=== PATIENT | male | born 1960 | race Caucasian/White ===

== ENCOUNTER 2017-02-15 14:59 | Emergency (ER) | payer BC ==
--- NOTE | 2017-02-15 15:49 | DIAGNOSTIC IMAGING REPORT ---
PROCEDURE: CT HEAD WITHOUT CONTRAST INDICATION: STROKE SYMPTOMS TECHNIQUE: Axial CT images were acquired through the head. Coronal and sagittal reformations were created. COMPARISON: None. FINDINGS: No intracranial hemorrhage or extraaxial fluid collections. Ventricles are normal in size, shape and position. There is no mass, mass effect or midline shift. The anne-white matter differentiation is normal. There is no edema. The calvarium is intact. The paranasal sinuses and mastoid air cells are normally aerated. The extracranial soft tissues and orbits are normal. IMPRESSION: 1. No CT evidence of acute intracranial process. 2. Findings discussed with ED at 3:50pm. All CT scans at this facility use dose modulation, iterative reconstruction, and/or weight-based dosing when appropriate to reduce radiation dose to as low as reasonably achievable.
--- NOTE | 2017-02-15 15:51 | DIAGNOSTIC IMAGING REPORT ---
PROCEDURE: XR CHEST 1 VIEW INDICATION: STROKE SYMPTOMS AND CHEST PAIN TECHNIQUE: Portable AP view 03:15 p.m. COMPARISON: None. FINDINGS: Lungs are clear. Heart and mediastinum are normal. Thorax is normal. IMPRESSION: 1. Negative chest.
--- NOTE | 2017-02-15 17:09 | DIAGNOSTIC IMAGING REPORT ---
PROCEDURE: CTA HEAD AND NECK INDICATION: Right-sided weakness. TECHNIQUE: 112 ml of Isovue 370 injected intravenously and axial images were obtained from the vertex through the upper mediastinum with 3D sagittal and coronal MIP reconstructions. COMPARISON: Head CT 02/15/2017. FINDINGS: AORTIC ARCH: Normal. RIGHT CAROTID SYSTEM: Minor plaque formation. LEFT CAROTID SYSTEM: Atherosclerosis of the origin of the left vertebral artery but no evidence of stenosis. VERTEBROBASILAR SYSTEM: Normal INTRACRANIAL ANTERIOR CIRCULATION: Normal without evidence of atherosclerosis, stenosis, occlusion or aneurysm. INTRACRANIAL POSTERIOR CIRCULATION: Normal without evidence of atherosclerosis, stenosis, occlusion or aneurysm. IMPRESSION: 1. Minor plaque formation of the carotid bifurcations bilaterally without stenosis 2. Atherosclerosis at the origin of the left vertebral artery without stenosis 3. Results discussed with Dr. Avendano All CT scans at this facility use dose modulation, iterative reconstruction, and/or weight-based dosing when appropriate to reduce radiation dose to as low as reasonably achievable.
--- NOTE | 2017-02-15 17:46 | DIAGNOSTIC IMAGING REPORT ---
PROCEDURE: US ART LOWER EXT DOPPLER-RIGHT INDICATION: PAIN IN LIMB TECHNIQUE: Color Doppler duplex imaging of the right lower extremity arterial system was performed. The patient was unable to exercise. COMPARISON: None. FINDINGS: No significant plaque seen. VESSELS/ WAVEFORMS: Triphasic PEAK SYSTOLIC VELOCITIES: Common femoral artery: 76 cm/second. Profunda femoral artery: 52 cm/second. Proximal superficial femoral artery: 60 cm/second. Mid superficial femoral artery: 74 cm/second. Distal superficial femoral artery: 67 cm/second. Popliteal artery: 51 cm/second. Proximal posterior tibial artery: 47 cm/second. Proximal anterior tibial artery: 40 eight cm/second. Distal posterior tibial artery: 36 cm/second. Dorsalis pedis artery: 44 cm/second. Peroneal artery: 41 cm/sec IMPRESSION: 1. Normal arterial tree right lower extremity 2. Results were called to Dr. Avendano at 05:45 p.m.
--- NOTE | 2017-02-15 19:01 | ED ORDER SUMMARY ---
..... Patient: LAISHA PARNELL OrderSheet [facility] VisitID: [id number] [address] [place] [address] 56y, M Registration Date/Time: 02/15/2017 ORDER SHEET Weight: 85.8 kg (measured) Allergies: Demerol GENERAL ORDERS: Chest 1V Urgent (15:02 02/15/2017 Malcom Dinh) (Ack 15:05 Samsona ER Tech1) (15:17 EHassan R.N.) CT Head wo Cont Urgent (15:03 02/15/2017 Malcom Dinh) (Ack 15:05 Lindsay BLANCHARD Tech1) (15:12 JSailyneck R.N.) Stroke Panel Stat (15:04 02/15/2017 Malcom Dinh) (Ack 15:05 Lindsay ER Tech1) (15:12 Joseeck R.N.) Troponin-I Urgent (15:04 02/15/2017 Malcom Dinh) (Ack 15:05 Samsona ER Tech1) (15:12 DANYimbeck R.N.) TSH Urgent (15:04 02/15/2017 Malcom Dinh) (Ack 15:05 Lindsay ER Tech1) (15:12 JSimbeck R.N.) CTA Head w Cont (No) (GFR > 60) Urgent (16:03 02/15/2017 Malcom Dinh) (Ack 16:06 Lindsay BLANCHARD Tech1) (Cancelled: Duplicate Order16:08 Malcom Dinh) CTA Head and Neck (No) (gfr > 60) Urgent (16:07 02/15/2017 Malcom Dinh) (Ack 16:08 Lindsay ER Tech1) (16:39 EHassadennis R.N.) US Art Low Ext Doppler Right Urgent (16:22 02/15/2017 Malcom Dinh) (Ack 16:23 Lindsay ER Tech1) (19:05 EHassadennis R.N.) Troponin-I (redraw now please) Urgent (17:51 02/15/2017 Malcom Dinh) (Ack 17:55 Lindsay ER Tech1) (19:05 EHassan R.N.) MEDICATION ORDERS: IV FLUIDS: IV NS : initial bolus 1000 mL (1000 mL/hr), then none - for X1 (NOW) (15:03 02/15/2017 Malcom Dinh) (15:18 Ching R.N.) Fentanyl IV 50 mcg (HIGH ALERT MEDICATION, NOW) (15:04 02/15/2017 Malcom Dinh) (15:18 Ching R.N.) ORDER SHEET NOTES: [Electronically signed by Kaleigh Serna R.N. (23:44 02/15/2017)] [Electronically signed by Jairo Avendano Dr. (09:42 02/16/2017)] [Electronically locked/signed by Kaleigh Serna R.N. (23:44 02/15/2017)]
--- NOTE | 2017-02-15 19:01 | ED ORDER SUMMARY ---
..... Patient: LAISHA PARNELL OrderSheet [facility] VisitID: [id number] [address] [place] [address] 56y, M Registration Date/Time: 02/15/2017 ORDER SHEET Weight: 85.8 kg (measured) Allergies: Demerol GENERAL ORDERS: Chest 1V Urgent (15:02 02/15/2017 Malcom Dinh) (Ack 15:05 Samsona ER Tech1) (15:17 EHassan R.N.) CT Head wo Cont Urgent (15:03 02/15/2017 Malcom Dinh) (Ack 15:05 Lindsay BLANCHARD Tech1) (15:12 JSailyneck R.N.) Stroke Panel Stat (15:04 02/15/2017 Malcom Dinh) (Ack 15:05 Lindsay ER Tech1) (15:12 Joseeck R.N.) Troponin-I Urgent (15:04 02/15/2017 Malcom iDnh) (Ack 15:05 Samsona ER Tech1) (15:12 DANYimbeck R.N.) TSH Urgent (15:04 02/15/2017 Malcom Dinh) (Ack 15:05 Lindsay ER Tech1) (15:12 JSimbeck R.N.) CTA Head w Cont (No) (GFR > 60) Urgent (16:03 02/15/2017 Malcom Dinh) (Ack 16:06 Lindsay BLANCHARD Tech1) (Cancelled: Duplicate Order16:08 Malcom Dinh) CTA Head and Neck (No) (gfr > 60) Urgent (16:07 02/15/2017 Malcom Dinh) (Ack 16:08 Lindsay ER Tech1) (16:39 EHassadennis R.N.) US Art Low Ext Doppler Right Urgent (16:22 02/15/2017 Malcom Dinh) (Ack 16:23 Lindsay ER Tech1) (19:05 EHassadennis R.N.) Troponin-I (redraw now please) Urgent (17:51 02/15/2017 Malcom Dinh) (Ack 17:55 Lindsay ER Tech1) (19:05 EHassan R.N.) MEDICATION ORDERS: IV FLUIDS: IV NS : initial bolus 1000 mL (1000 mL/hr), then none - for X1 (NOW) (15:03 02/15/2017 Malcom Dinh) (15:18 Ching R.N.) Fentanyl IV 50 mcg (HIGH ALERT MEDICATION, NOW) (15:04 02/15/2017 Malcom Dinh) (15:18 Ching R.N.) ORDER SHEET NOTES: [Electronically signed by Kaleigh Serna R.N. (23:44 02/15/2017)] [Electronically signed by Jairo Avendano Dr. (09:42 02/16/2017)] [Electronically locked/signed by Kaleigh Serna R.N. (23:44 02/15/2017)]
--- NOTE | 2017-02-15 19:01 | ED NURSING NOTES ---
Clinical Report - [facility] [address] [place] [address] 02/15/2017 15:00 Patient: LAISHA PARNELL TRIAGE Triage time 1500 PM. Acuity: LEVEL 2. Chief Complaint: DIZZINESS, NUMBNESS and DIFFICULTY WALKING (Chest pain, SOB). Alert. No acute distress. SOHA COMA SCORE: Soha Coma Scale: 15- eyes open spontaneously (4); best verbal response- oriented x 4 (5); best motor response- obeys commands (6). --15:39 Kaleigh Serna R.N. 15:00 02/15/17. BP: 137/102 (regular adult cuff) taken on the left arm, via an automated monitor, while sitting. HR: 75. RR: 14. O2 saturation: 97% on room air. Temp: 98.3 F (oral). Pain level now: 07/10. --15:39 Kaleigh Serna R.N. late entry - 15:39 PM. --15:45 Kaleigh Serna R.N. Weight: 85.8 kg measured. Height/Length: 70 inches Per Patient. BMI: 27.1. --15:24 Kaleigh Serna R.N. Medications Levothyroxine Sodium Oral. --15:19 Kaleigh Serna R.N. Multivitamin Oral. --15:23 Kaleigh Serna R.N. Fish Oil Oral. --15:23 Kaleigh Serna R.N. Allergies Demerol. --15:19 Kaleigh Serna R.N. Medication/allergy information source: the patient. --15:39 Kaleigh Serna R.N. History Arrived by private vehicle. Historian: patient. Accompanied by family. Primary physician (None). ( Pt states that was driving about 1 hour and 1/2 ago when he suddenly had CP, COB, tingling/pain of his right leg and foot all the way up his thigh. Pt states). This is a recurrent problem. (1 weeks). He has had weakness and difficulty breathing. No fever, cough or skin rash. Denies muscle aches. PAST MEDICAL HX: Immunizations: status is unknown. SOCIAL HX: Occasional alcohol use. No drug use. No infectious disease exposure. ABUSE ASSESSMENT: No report of abuse. SELF HARM ASSESSMENT: A self harm assessment was performed. The patient answered "no" to the question "Do you have thoughts of harming or killing yourself?" and "Have you recently had thoughts about harming or killing others?". FALL RISK ASSESSMENT: Fall risk assessment completed. No fall risk identified. NUTRITIONAL RISK ASSESSMENT: The nutritional risk assessment revealed no deficiencies. FUNCTIONAL ASSESSMENT: Functional assessment: no impairments noted. LEARNING NEEDS ASSESSMENT: The learning needs assessment revealed no barriers. SKIN INTEGRITY ASSESSMENT: Skin integrity risk assessment completed. No skin integrity risk identified. --15:39 Kaleigh Serna R.N. Treatment REGISTERED MIDWIFE: None. --15:39 Kaleigh Serna R.N. Primary physician called the ED prior to patient's arrival (Dr. Bonilla [facility]). ( Pt states also having CP on and off for the past couple of weeks and has not gone to see a doctor about it due to it "resolving". Pt did drive himself to the ED after speaking to his doctor over the phone who recommended him to come to the ED immediately.). --15:45 Kaleigh Serna R.N. PROBLEMS: Anxiety disorder. Back Pain. --15:24 Kaleigh Serna R.N. Hypothyroidism. Thalassemia. --16:08 Kaleigh Serna R.N. ADDITIONAL SURGERIES: Back Surgery. Hernia Repair. --15:24 Kaleigh Serna R.N. Interventions ID band on patient. --15:39 Kaleigh Serna R.N. PHYSICAL ASSESSMENT To room via wheelchair. GENERAL / NEURO / PSYCH: Alert. Oriented X 4. Appears in no acute distress. Appears in pain and anxious. Rigid gait due to pain in the right lower extremity. Able to ambulate with a limp. Does not use a cane or walker or crutches. Pupillary exam: Right pupil 1mm, round and briskly reactive to light directly. Left pupil: 1mm, round and briskly reactive to light directly. HEENT: Pupils equal, round and reactive to light. No facial asymmetry noted. No conjunctival findings. No facial weakness. No pharyngeal erythema or active bleeding from nose. Normal external canals. No sinus tenderness present or nasal discharge. Mucous membranes are pink. RESPIRATORY: Respirations not labored. Chest nontender. Breath sounds within normal limits. CVS: No JVD. No abnormal heart sounds. Capillary refill less than 2 seconds. Pulses within normal limits. GI / : Abdomen soft and nontender and normal bowel sounds. EXTREMITIES: No lower extremity edema. SKIN: Skin intact. Skin is warm and dry. Normal skin turgor. --15:41 Kaleigh Serna R.N. ( FAST exam with right sided (LE ) weakness, as per pt due to "pain and unable to move leg" but able to feel). --15:47 Kaleigh Serna R.N. NURSING PROGRESS NOTES 15:03 02/15/2017 Started bag #1 1000 mL IV Fluids IV NS (Saline); at 1000 mL/hr over 1 hour(s) via site #1 via IV pump. Allergies verified and confirmed 5 rights. IV patency established. IV site checked: no pain, redness, or swelling. IV flushed thoroughly pre- and post-medication administration. --15:18 Kaleigh Serna R.N. 15:17 02/15/2017 Site #1 started via IV in the left antecubital space with an 18g angiocath; one attempt. Blood drawn: rainbow set. Labeled in the presence of the patient and sent to the lab. --15:18 Kaleigh Serna R.N. 15:18 02/15/2017 Fentanyl IVP 50 mcg given over 1 minute(s) via site #1. Allergies verified, confirmed 5 rights and sedative warning given to the patient. IV patency established. IV site checked: no pain, redness, or swelling. IV flushed thoroughly pre- and post-medication administration. IVP given by RN. --15:18 Kaleigh Serna R.N. 15:30 02/15/17. BP: 130/86 (regular adult cuff) taken on the right arm, via an automated monitor, while sitting. HR: 87. RR: 16. O2 saturation: 100% on nasal cannula at 2 liters/minute. Pain level now: 5/10. --15:51 Kaleigh Serna R.N. late entry - 15:05. Cardiac rhythm: normal sinus rhythm. The initial plan of care for this patient has been created This plan of care was discussed with the patient and family. Oxygen administered. conveyor monitor, pulse oximeter and NIBP monitor placed on patient; monitor alarms on. Patient ID band checked for patient name and birthdate: patient confirmed. Blood samples drawn from the left antecubital space peripheral IV site by nurse per protocol ; labeled in presence of the patient and sent to lab: rainbow set. Finger stick glucose: 85; performed by nurse; result shown to the ED physician. Portable chest x-ray performed and shown to the ED physician. Patient gowned. Warming measures: blanket applied. Reassurance given. Two patient identifiers checked. Call light placed in reach. Side rails up. Bed placed in lowest position. --15:51 Kaleigh Serna R.N. 15:45 02/15/17. BP: 133/85 (regular adult cuff) taken on the right arm, via an automated monitor, while lying. HR: 67. RR: 15. O2 saturation: 98% on nasal cannula at 2 liters/minute. Pain level now: 12/08. --15:53 Kaleigh Serna R.N. late entry - 15:45 PM. conveyor monitor, pulse oximeter and NIBP monitor placed on patient; monitor alarms on. Reassurance given. Reassessment after fluids administered. He has had no adverse reaction. Overall patient status is the same- he states feels the same. GENERAL / NEURO / PSYCH: The patient reports anxiety. Denies headache. RESPIRATORY: Denies difficulty breathing. No respiratory distress present. No decreased breath sounds. CVS: Denies chest pain. GI / : Denies nausea. --15:53 Kaleigh Serna R.N. 16:00 02/15/17. BP: 135/89. HR: 72. RR: 22. O2 saturation: 16%. Pain level now: 10/10. --16:12 Kaleigh Serna R.N. Reassurance given. GENERAL / NEURO / PSYCH: Denies headache. RESPIRATORY: Denies difficulty breathing. CVS: The patient reports chest pain that is mild in severity (pressure). GI / : Denies nausea. --16:12 Kaleigh Serna R.N. Patient returned from CT by stretcher. (1639 PM). --16:39 Kaleigh Serna R.N. 17:20 02/15/17. BP: 128/80. HR: 71. RR: 17. O2 saturation: 99%. --17:22 Prudence Paredes R.N. ( ( complete, at bedside explaining poc to pt and family. pt in SR on monitor rate of 80's, no ectopy, family/friends at bedside, waiting plans for transfer out). 17:19 Prudence Paredes R.N.). --17:22 Prudence Paredes R.N. Checked patient name and birthdate: patient confirmed. Blood samples drawn from the right antecubital space by nurse per protocol ; labeled in presence of the patient and sent to lab: green top; cardiac enzymes (2nd set). --18:03 Prudence Paredes R.N. ED physician notified that lab results are back. Notified (rec call from lab, repeat trop less than .05). --18:29 Prudence Paredes R.N. 16:08 02/15/2017 IV Fluids IV NS Discontinued: bag #1 infused. Total amount infused: 1000 mL. IV patency established. IV site checked: no pain, redness, or swelling. IV flushed thoroughly. --19:08 Kaleigh Serna R.N. 16:39 02/15/2017 Fentanyl IVP Response: no adverse reaction pain is improving. Symptoms have improved the patient feels better. --16:39 Kaleigh Serna R.N. late entry - 18:00 PM. Cardiac rhythm: normal sinus rhythm. Monitoring of patient in place. Reassurance given. The patient is calm and resting quietly. Overall patient status is improved- he states feels better. GENERAL / NEURO / PSYCH: Denies headache. RESPIRATORY: Denies difficulty breathing. CVS: Denies chest pain. GI / : Denies nausea. Call light placed in reach. --20:36 Kaleigh Serna R.N. 18:00 02/15/17. BP: 135/69. HR: 84. RR: 14. O2 saturation: 98% on room air. Temp: 97.3 F (oral). Pain level now: 0/10. --20:36 Kaleigh Serna R.N. late entry - 19:00 PM. Cardiac rhythm: normal sinus rhythm. Reassurance given. The patient is calm. Overall patient status is improved- he states feels better. Call light placed in reach. --20:37 Kaleigh Serna R.N. 19:00 02/15/17. BP: 136/68. HR: 84. RR: 14. O2 saturation: 99% on room air. Temp: 98.3 F (oral). Pain level now: 0/10. --20:37 Kaleigh Serna R.N. Cardiac rhythm: normal sinus rhythm. conveyor monitor, pulse oximeter and NIBP monitor placed on patient; monitor alarms on. Reassurance given. Overall patient status is improved- he states feels better. ( Pt spoken to several times about being admitted and educated on the benefits of being observed due to events, pt has remained asymptomatic since returning from CT scan without any numbness, weakness or chest pain. Pt opting to going home instead, trying to set up out pt testing. Will monitor). --20:50 Kaleigh Serna R.N. 20:00 02/15/17. BP: 134/82 taken on the left arm, via an automated monitor, while lying. HR: 86. RR: 14. O2 saturation: 96% on room air. Pain level now: 0/10. --20:50 Kaleigh Serna R.N. DISPOSITION / DISCHARGE <<STRICKEN ENTRY-- Condition at departure: improved and stable. --21:54 Kaleigh Serna R.N. --END STRIKE>> Correction --21:55 Kaleigh Serna R.N. 21:00 02/15/2017 Site #1 removed upon discharge. Catheter intact. Manual pressure, pressure dressing, bandaid and bandage applied. --21:55 Kaleigh Serna R.N. Cardiac rhythm: normal sinus rhythm. Departure time: 2115 PM. Condition at departure: improved and stable. The goals identified in the patient's plan of care were met. No learning barriers present. Discharge instructions provided and reviewed with the patient and spouse. Reviewed warnings (s/s of stroke). Reviewed medication(s) side effects, precautions, dosing and course information. Prescription(s) given to the patient. Reviewed referral to a conveyor line bakery worker for followup. Summary of care provided to via digital media. Activity restrictions (rest) reviewed. Patient verbalized understanding. Written instructions provided in Icelandic. No treatment instructions. The patient was discharged by the physician. He was discharged home and accompanied by spouse. He left the Emergency Department ambulatory and via private vehicle. Spouse driving. FALL RISK ASSESSMENT: Fall risk assessment completed. No fall risk identified. SOHA COMA SCORE: Soha Coma Scale: 15- eyes open spontaneously (4); best verbal response- oriented x 4 (5); best motor response- obeys commands (6). --21:57 Kaleigh Serna R.N. 21:15 02/15/17. BP: 134/69. HR: 87. RR: 15. O2 saturation: 99% on room air. Temp: 98.5 F (oral). Pain level now: 0/10. --21:57 Kaleigh Serna R.N. Locked/Released at 02/15/2017 23:44 by Kaleigh Serna R.N.
--- NOTE | 2017-02-15 19:01 | ED CLINICAL REPORT ---
Clinical Report - Physicians/Mid Levels [facility] [address] [place] [address] 02/15/2017 15:00 Patient: LAISHA PARNELL Time Seen: 1501. Arrived- By private vehicle. Historian- patient. HISTORY OF PRESENT ILLNESS Chief Complaint: WEAKNESS. 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 It was abrupt in onset and has been constant but is not gone now. The patient has had new onset of weakness, (right sided). At its maximum deficit described as severe. When seen in the E.D., described as severe. No altered mental status, seizure or blackouts. Usually is alert and oriented X3 and has normal mobility. (states he was unable to walk. states he is having extreme pain to the right lower extremity. also reports left sided chest pain. possible facial droop on my exam on the right however patient states he is unsure. patient with hx of chest pain off and on for the past week. no cardiac history. no hx of stress tests or other studies. reports being in good health. no hemoptysis, leg swelling, or shortness of breath. reports pain as moderate, constant, non-radiating, and unchanged.). Similar symptoms previously: None. Recent medical care: Not recently seen/assessed. REVIEW OF SYSTEMS The patient has had chest pain. No skin rash. All systems otherwise negative, except as recorded above. PAST HISTORY See nurses notes. Medications: Fish Oil Oral. Multivitamin Oral. Levothyroxine Sodium Oral. Allergies: Demerol. SOCIAL HISTORY Never smoker. No alcohol use or drug use. No recent travel. Is a local resident. FAMILY HISTORY Negative. ADDITIONAL NOTES The nursing notes have been reviewed. PHYSICAL EXAM Vital Signs: 02/15/2017 15:00 BP: 137/102. HR: 75. RR: 14. O2 saturation: 97%. Temp: 98.3 F. Pain level now: 10/10. Oxygen saturation normal. Appearance: Alert. Anxious. Appears to be in pain. Patient in moderate distress. Odor of alcohol is not present. Speech is not slurred. (non-toxic). Head: Head atraumatic. Eyes: Pupils equal, round and reactive to light. ENT: Normal ENT inspection. Airway intact. Pharynx normal. Neck: Normal inspection. Neck supple. No meningeal signs or carotid bruit. CVS: Normal heart rate and rhythm. Heart sounds normal. Pulses normal. Respiratory: No respiratory distress. Breath sounds normal. Abdomen: Soft and nontender. No organomegaly. Skin: Skin warm and dry. Normal skin color. No rash. Normal skin turgor. Extremities: Extremities exhibit normal ROM. No lower extremity edema. (compartments are soft.). Neuro: Alert. Oriented X 3. Mood/affect normal. Speech normal. Cranial nerves normal (as tested). (right lower extremity weakness 3/5 and 4+/5 in the upper. Left unaffected. No drift. Normal finger to nose. Unable to assess right lower extremity ataxia. Right leg is hypersensitive to light touch. reports "burning" with touch. vascular intact. warm to touch. cap refill < 3 sec in all toes. pulses palpable and 2+ compared to the left side.). LABS, X-RAYS, AND EKG EKG: No acute ischemia. Normal sinus rhythm. Normal P waves. Normal CANDIE. Normal QRS complex. Normal axis. Normal ST and T waves, QT and QTc. The study has been interpreted contemporaneously. The study has been independently viewed by me. The EKG appears to be a good tracing. Chest X-ray: Normal Chest X-Ray. CTA Head: No acute changes. No significant lesions. No infarction, hemorrhage, intracranial mass, midline shift or fracture. The study was independently viewed by me and interpreted by the radiologist. The study was discussed with the radiologist (via pacs and phone). CT Head: Normal study. No acute changes. No bony abnormalities, no hemorrhage, no intracranial mass and no midline shift. The study was independently viewed by me, interpreted by the radiologist and discussed with the radiologist. Lower Extremity Sonography: Negative exam. right sided lower extremity negative. The exam was performed by a exercise equipment repair technician. The study was independently viewed by me and interpreted by the radiologist. The study was discussed with the radiologist (via pacs). Laboratory Tests: CBC w Diff: (CHETNA: 02/15/2017 15:03) ( MsgRcvd 02/15/2017 17:22) Final results Test Result Flag Units (Reference) WHITE BLOOD COUNT 8.4 K/uL (4.5-11.5) RED BLOOD COUNT 7.08 *H M/uL (4.50-5.90) HEMOGLOBIN 14.0 gm/dL (13.5-17.5) HEMATOCRIT 43.7 % (41.0-53.0) MEAN CELL VOLUME 62 L fL (80-100) MEAN CORPUSCULAR HGB 20 L pg (26-34) MEAN CORPUSCULAR HGB CONC 32 g/dL (31-37) RED CELL DISTRIBUTION WIDTH 15.7 H % (11.6-14.8) PLATELET COUNT 214 K/uL (150-400) NEUTROPHIL % 52.1 % (50-75) LYMPH % 33.1 % (25-40) MONO % 10.8 % (3-14) EOSINOPHIL % 3.6 % (0-4) BASOPHIL % 0.4 % (0-2) RBC MORPHOLOGY MICROCYTOSIS 3+~~HYPOCHROMIA 1+~~ANISOCYTOSIS 3+ PT with INR: (CHETNA: 02/15/2017 15:03) ( MsgRcvd 02/15/2017 15:37) Final results Test Result Flag Units (Reference) INR 1.0 (0.8-1.2) Low Intensity Therapy: INR 1.5-2.0 PT range 18.5-23.1Mod.Intensity Therapy: INR 2.0-3.0 PT range 23.1-31.5High Intensity Therapy: INR 2.5-3.5 PT range 27.4-35.5High Intensity Therapy 2: INR 3.0-4.0 PT range 31.5-39.3 APTT 30 SECONDS (24-34) FIBRINOGEN 313 mg/dL (193-455) D-DIMER QUANTITATIVE < 0.27 L ug/mLFEU (0.27-0.52) The primary value of this quantitative assay relates toits negative predictive value (i.e. exclusion) of pulmonaryembolism/deep vein thrombosis/DIC.Elevated levels of d-dimer may also occur with:, age, cancer, inflammation, liver disease,post-op, infection, hematoma, coronary disease, peripheralarteriopathy, bleeding disorders and thrombolytic treatment.Results should be correlated with other clinical andradiological data.Testing Methodology: Latex Immunoassay Troponin-I: (CHETNA: 02/15/2017 18:01) ( [facility] 02/15/2017 18:29) Final results Test Result Flag Units (Reference) TROPONIN I <0.05 L ng/mL (0.00-1.5) TROPONIN REFERENCE RANGE:<0.1 NEGATIVE0.1-1.5 INDETERMINANT>1.5 POSITIVE Troponin-I: (CHETNA: 02/15/2017 15:03) ( [facility] 02/15/2017 17:22) Final results Test Result Flag Units (Reference) TROPONIN I <0.05 L ng/mL (0.00-1.5) TROPONIN REFERENCE RANGE:<0.1 NEGATIVE0.1-1.5 INDETERMINANT>1.5 POSITIVE THYROID STIMULATING HORMONE 2.733 uIU/mL (0.30-3.74) CMP: (CHETNA: 02/15/2017 15:03) ( [facility] 02/15/2017 15:45) Final results Test Result Flag Units (Reference) GLUCOSE 99 mg/dL (70-110) BUN 21 H mg/dL (7-18) CREATININE 0.9 mg/dL (0.6-1.3) Estimated GFR >60 mL/min Estimated GFR- >60 mL/min Note: Persistent reduction over 3 months in eGFR<60 mL/min/1.73 m2 defines CKD. Patients with eGFR values>=60 mL/min/1.73 m2 may also have CKD if evidence ofpersistent proteinuria. Additional information may be foundat www.kidney.org. SODIUM 142 mmol/L (136-145) POTASSIUM 3.9 mmol/L (3.5-5.1) CHLORIDE 104 mmol/L (98-107) CARBON DIOXIDE 27 mmol/L (21-32) CALCIUM 8.9 mg/dL (8.5-10.1) TOTAL PROTEIN 8.2 g/dL (6.4-8.2) ALBUMIN 4.2 g/dL (3.3-5.0) BILIRUBIN, TOTAL 0.6 mg/dL (0.0-1.0) ALKALINE PHOSPHATASE 70 U/L (46-116) AST (SGOT) 25 U/L (15-37) ALT (SGPT) 47 U/L (12-78) . PROGRESS AND PROCEDURES Course of Care: The patient is a pleasant 56 yo male in his usual state of health prior to today's incident. Differential includes CVA, aortic disection, and GA. Patient with unusual constellation of symptoms. Code stroke called. CT head was not read. Concerned for small area on the left. Called radiology oncall. No return of call. Called the next radiologist who was able to give us a read. Patient with negative findings. Consult placed to stroke neuro. Patient with NIH stroke scale of 4 on my initial evaluation. Spoke with the stroke fellow who recommended to get TPA ready. Was able to get speak to the patient and by the time I had evaluated the patient again, symptoms had resolved. stroke scale of 0. Neuro intact. Patient with dull chest pain. Trop x 2 needed. Patient with negative d-dimer. Low concern for aortic disection especially with resolution of symptoms. CTA of the head and neck also ordered for possible AVM or vascular lesion in the brain. US also added on for evaluation of arterial insufficiency. Patient and family updated. Due to the resolution of symptoms. TPA not indicated. Patient and family educated on TPA. Stroke neuro did recommend stroke/TIA work up. Trop neg x 2. Had discussion with patient about work up in the ED and plan of care as well as diagnosis. recommended patient be admitted and monitored and have work up done for ACS and stroke. After long discussion with patient, patient and family agreed to stay after expressing hesitation with finances and time. Explained to patient that finances come later and will worry about health and safety first. Consult placed to cardiology. Spoke to hospitalist who will see the patient. Patient was to be admitted however patient changed his mind at the last minute. Patient is aware of the risks of doing so. He states he lives nearby and will return for any worsening. Did educate patient on TIA and stroke as well as ACS. Patient expressed full understanding of the risks. Patient understands my concerns. Was able to order the patient and outpatient MRI of the head and stem as well as speak to cardiology at [facility]. Patient is to have a schedule appointment per cardiology and evaluation. Do not feel I can force the patient to stay. patient and family understands my concern for safety. They expressed their gratitude however declined the admit. Patient is able to make his own medical decisions. He is with normal mentation. Was able to compromise with outpatient workup. Discussed with patient his work up, diagnosis, home care, return precautions, and follow up. All questions answered. Patient expressed understanding of these instructions and was agreeable to them. Patient understands he is welcome to return at anytime. Do not feel an AMA form would change outcome and would only hurt the doctor patient relationship. Critical care performed (70 minutes). Time is exclusive of separately billable procedures. Time includes: direct patient care, patient reassessment, coordination of patient care, interpretation of data (laboratory data), review of patient's medical records, medical consultation, family consultation regarding treatment decisions and documentation of patient care. Consult obtained. stroke neuro and cardiology. Disposition: Discharged. Condition: good. CLINICAL IMPRESSION 02/15/2017 17:20 BP: 128/80. HR: 71. RR: 17. O2 saturation: 99%. 02/15/2017 16:00 BP: 135/89. HR: 72. RR: 22. O2 saturation: 16%. Pain level now: 10/10. Chest pain characterized as "discomfort" .12 lead EKG performed. (anterior). Blood pressure normal. Oxygen saturation normal. 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 INSTRUCTIONS Warnings: Further evaluation is necessary in order to conduct further tests (You need a stress test and a MRI of your head.). GENERAL WARNINGS: Return or contact your physician immediately if your condition worsens or changes unexpectedly, if not improving as expected, or if other problems arise. Specifically return if pain, vomiting, bleeding, breathing difficulty or fever. Your Current Medications: CONTINUE TAKING THE FOLLOWING MEDICATIONS: Fish Oil Oral. Levothyroxine Sodium Oral. Multivitamin Oral. OTC Medications: Aspirin 325 mg (available over the counter): take 1 orally. Dispense thirty (30). No refills. Follow-up: Return to the emergency department as needed. Follow up with your doctor in three days. Reason for referral: recheck today's concerns. Summary of care provided to patient via paper. Follow up with doctor. Screening today revealed the patient's blood pressure to be in the normal range. The patient should follow up with a primary care provider for blood pressure management. Understanding of the discharge instructions verbalized by patient. Follow-up with: Desire Rodriguez MD, Cardiology, , [facility] - Cardiology, [address] [place] [address], [facility], [facility] Follow up even if well. Call for the next available appointment. Reason for referral: recheck today's concerns. call the office tomorrow at 4pm if they have not called you for an appointment. Summary of care provided to patient and family via paper. (Electronically signed by Jairo Avendano Dr. 02/16/2017 9:42)
--- NOTE | 2017-02-16 09:43 | ED MAR SUMMARY ---
..... Medication Administration Record [facility] [address] [place] [address] Patient: LAISHA PARNELL Visit ID: [id number] 56y, M Weight: 85.8 kg Height/Length: 70 in BMI: 27.1 ALLERGIES: Demerol Start 15:03 02/15/2017 Kaleigh Serna R.N., Stop 16:08 02/15/2017 Kaleigh Serna R.N. Medication Administered: IV NS (SALINE), Dose: IV Fluids over 1 hour(s), Rate: 1000 mL/hr, Dispensed: 1000 mL bag, Site: #1. Medication Ordered: IV NS : initial bolus 1000 mL (1000 mL/hr), then none - for X1 (NOW). Given 15:18 02/15/2017 Kaleigh Serna R.N. Medication Administered: FENTANYL [IVP], Dose: 50 mcg IVP over 1 minute(s), Site: #1 left AC. Medication Ordered: Fentanyl IV 50 mcg (HIGH ALERT MEDICATION, NOW).
--- NOTE | 2017-02-16 09:43 | ED MAR SUMMARY ---
..... Medication Administration Record [facility] [address] [place] [address] Patient: LAISHA PARNELL Visit ID: [id number] 56y, M Weight: 85.8 kg Height/Length: 70 in BMI: 27.1 ALLERGIES: Demerol Start 15:03 02/15/2017 Kaleigh Serna R.N., Stop 16:08 02/15/2017 Kaleigh Serna R.N. Medication Administered: IV NS (SALINE), Dose: IV Fluids over 1 hour(s), Rate: 1000 mL/hr, Dispensed: 1000 mL bag, Site: #1. Medication Ordered: IV NS : initial bolus 1000 mL (1000 mL/hr), then none - for X1 (NOW). Given 15:18 02/15/2017 Kaleigh Serna R.N. Medication Administered: FENTANYL [IVP], Dose: 50 mcg IVP over 1 minute(s), Site: #1 left AC. Medication Ordered: Fentanyl IV 50 mcg (HIGH ALERT MEDICATION, NOW).
--- NOTE | 2017-02-16 09:43 | ED DISCHARGE INSTRUCTIONS ---
Patient: LAISHA PARNELL General Instructions [facility] VisitID: [id number] [address] [place] [address] 56y, M Registration Date/Time: 02/15/2017 02/15/2017 17:20 BP: 128/80. HR: 71. RR: 17. O2 saturation: 99%. 02/15/2017 16:00 BP: 135/89. HR: 72. RR: 22. O2 saturation: 16%. Pain level now: 10/10. Chest pain characterized as "discomfort" .12 lead EKG performed. (anterior). Blood pressure normal. Oxygen saturation normal. 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 INSTRUCTIONS Warnings: Further evaluation is necessary in order to conduct further tests (You need a stress test and a MRI of your head.). GENERAL WARNINGS: Return or contact your physician immediately if your condition worsens or changes unexpectedly, if not improving as expected, or if other problems arise. Specifically return if pain, vomiting, bleeding, breathing difficulty or fever. Your Current Medications: CONTINUE TAKING THE FOLLOWING MEDICATIONS: Fish Oil Oral. Levothyroxine Sodium Oral. Multivitamin Oral. OTC Medications: Aspirin 325 mg (available over the counter): take 1 orally. Dispense thirty (30). No refills. Follow-up: Return to the emergency department as needed. Follow up with your doctor in three days. Reason for referral: recheck today's concerns. Summary of care provided to patient via paper. Follow up with doctor. Screening today revealed the patient's blood pressure to be in the normal range. The patient should follow up with a primary care provider for blood pressure management. Understanding of the discharge instructions verbalized by patient. Follow-up with: Desire Rodriguez MD, Cardiology, , [facility] - Cardiology, [facility] [address], [place] [address] Follow up even if well. Call for the next available appointment. Reason for referral: recheck today's concerns. call the office tomorrow at 4pm if they have not called you for an appointment. Summary of care provided to patient and family via paper. ADDITIONAL INFORMATION TIA: Transient Ischemic Attack The spell you had today is called a TIA (mini-stroke). It is caused by a temporary decrease or blockage of blood flow to a part of your brain. A TIA often happens when a blood clot travels to a blood vessel in the brain. The clot reduces or blocks blood flow, resulting in the symptoms you had. After a short while, the clot dissolves, blood flows again, and the symptoms disappear. Persons with atherosclerosis (hardening of the arteries) or atrial fibrillation (a type of irregular heartbeat) are at higher risk of TIA. TIA causes temporary symptoms similar to a stroke, but lasts less than 24 hours. A full stroke causes symptoms that last more than 24 hours and may be permanent. Once you have had a TIA, you are at risk of having a full stroke. Therefore, be sure to follow up with your doctor for further evaluation. This may include an ultrasound of the arteries in your neck and an evaluation of your heart. If problems are found, your doctor will recommend treatment with medications and/or procedures. Medications to reduce your chance of having another TIA (and stroke) include those that prevent blood clots, such as antiplatelet medicines and anticoagulant medicines. Home care The following guidelines will help you take care of yourself at home: If all of your symptoms have resolved, there is nothing special that you need to do today. Rest at home and avoid exertion for the rest of the day. If your doctor has prescribed antiplatelet medication, take it as directed. Other ways to reduce your risk of a stroke Hypertension, diabetes, elevated cholesterol, and smoking are risk factors for stroke and heart disease. These can be controlled through medications, diet and lifestyle changes. Taking daily aspirin (or similar medications) is a simple but important part of preventing stroke. Follow-up care Call your doctor for an appointment in the next few days for another evaluation. Additional tests may be needed. If you had an X-ray, CT scan, MRI scan, or ECG (electrocardiogram), it will be reviewed by a specialist. Youll be notified of any new findings that will affect your care. When to call 911 or emergency services Get immediate medical attention if any of the following occur: Any of your TIA symptoms return New problems with speech, vision, walking, or weakness or numbeness of the face or on one side of the body Severe headache, fainting spell, dizziness, or seizure Chest Pain, Uncertain Cause Chest pain can happen for a number of reasons. Sometimes the cause can not be determined. If yourcondition does not seem serious, and your pain does not appear to be coming from your heart, your doctor may recommend watching it closely. Sometimes the signs of a serious problem take more time to appear. Therefore, watch for the warning signs listed below. Home care After your visit, follow these recommendations: Rest today and avoid strenuous activity. Take any prescribed medicine as directed. Follow-up care Follow up with your doctor or this facility as instructed or if you do not start to feel better within 24 hours. Call 911 Get immediate medical attention if any of the following occur: A change in the type of pain: if it feels different, becomes more severe, lasts longer, or begins to spread into your shoulder, arm, neck, jaw or back Shortness of breath or increased pain with breathing Weakness, dizziness, or fainting Rapid heart beat Get prompt medical attention Call your doctor right away if any of the following occur: Cough with dark colored sputum (phlegm) or blood Fever of 100.4F(38C) or higher, or as directed by your health care provider Swelling, pain or redness in one leg Aspirin Oral tablet What is this medicine? ASPIRIN ( pir in) is a pain reliever. It is used to treat mild pain and fever. This medicine is also used as directed by a doctor to prevent and to treat heart attacks, to prevent strokes, and to treat arthritis or inflammation. How should I use this medicine? Take this medicine by mouth with a glass of water. Follow the directions on the package or prescription label. You can take this medicine with or without food. If it upsets your stomach, take it with food. Do not take your medicine more often than directed. Talk to your diving board assembler regarding the use of this medicine in children. While this drug may be prescribed for children as young as 12 years of age for selected conditions, precautions do apply. Children and teenagers should not use this medicine to treat chicken pox or flu symptoms unless directed by a doctor. Patients over 65 years old may have a stronger reaction and need a smaller dose. What side effects may I notice from receiving this medicine? Side effects that you should report to your doctor or health after school caregiver as soon as possible: allergic reactions like skin rash, itching or hives, swelling of the face, lips, or tongue breathing problems changes in hearing, ringing in the ears confusion general ill feeling or flu-like symptoms pain on swallowing redness, blistering, peeling or loosening of the skin, including inside the mouth or nose signs and symptoms of bleeding such as bloody or black, tarry stools; red or dark-brown urine; spitting up blood or brown material that looks like coffee grounds; red spots on the skin; unusual bruising or bleeding from the eye, gums, or nose trouble passing urine or change in the amount of urine unusually weak or tired yellowing of the eyes or skin Side effects that usually do not require medical attention (report to your doctor or health after school caregiver if they continue or are bothersome): diarrhea or constipation nausea, vomiting stomach gas, heartburn What may interact with this medicine? Do not take this medicine with any of the following medications: cidofovir ketorolac probenecid This medicine may also interact with the following medications: alcohol alendronate bismuth subsalicylate flavocoxid herbal supplements like feverfew, garlic, jeana, ginkgo biloba, horse chestnut medicines for diabetes or glaucoma like acetazolamide, methazolamide medicines for gout medicines that treat or prevent blood clots like enoxaparin, heparin, ticlopidine, warfarin other aspirin and aspirin-like medicines NSAIDs, medicines for pain and inflammation, like ibuprofen or naproxen pemetrexed sulfinpyrazone varicella live vaccine What if I miss a dose? If you are taking this medicine on a regular schedule and miss a dose, take it as soon as you can. If it is almost time for your next dose, take only that dose. Do not take double or extra doses. Where should I keep my medicine? Keep out of the reach of children. Store at room temperature between 15 and 30 degrees C (59 and 86 degrees F). Protect from heat and moisture. Do not use this medicine if it has a strong vinegar smell. Throw away any unused medicine after the expiration date. What should I tell my health care provider before I take this medicine? They need to know if you have any of these conditions: anemia asthma bleeding problems child with chickenpox, the flu, or other viral infection diabetes gout if you frequently drink alcohol containing drinks kidney disease liver disease low level of vitamin K lupus smoke tobacco stomach ulcers or other problems an unusual or allergic reaction to aspirin, tartrazine dye, other medicines, dyes, or preservatives or trying to get breast-feeding What should I watch for while using this medicine? If you are treating yourself for pain, tell your doctor or health after school caregiver if the pain lasts more than 10 days, if it gets worse, or if there is a new or different kind of pain. Tell your doctor if you see redness or swelling. Also, check with your doctor if you have a fever that lasts for more than 3 days. Only take this medicine to prevent heart attacks or blood clotting if prescribed by your doctor or health after school caregiver. Do not take aspirin or aspirin-like medicines with this medicine. Too much aspirin can be dangerous. Always read the labels carefully. This medicine can irritate your stomach or cause bleeding problems. Do not smoke cigarettes or drink alcohol while taking this medicine. Do not lie down for 30 minutes after taking this medicine to prevent irritation to your throat. If you are scheduled for any medical or dental procedure, tell your healthcare provider that you are taking this medicine. You may need to stop taking this medicine before the procedure. You have been given the following additional information: TIA: Transient Ischemic Attack Chest Pain, Uncertain Cause Aspirin Oral tablet (Electronically signed by Jairo Avendano Dr. 02/16/2017 9:42)
--- NOTE | 2017-02-16 09:43 | ED DISCHARGE INSTRUCTIONS ---
Patient: LAISHA PARNELL General Instructions [facility] VisitID: [id number] [address] [place] [address] 56y, M Registration Date/Time: 02/15/2017 02/15/2017 17:20 BP: 128/80. HR: 71. RR: 17. O2 saturation: 99%. 02/15/2017 16:00 BP: 135/89. HR: 72. RR: 22. O2 saturation: 16%. Pain level now: 10/10. Chest pain characterized as "discomfort" .12 lead EKG performed. (anterior). Blood pressure normal. Oxygen saturation normal. 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 INSTRUCTIONS Warnings: Further evaluation is necessary in order to conduct further tests (You need a stress test and a MRI of your head.). GENERAL WARNINGS: Return or contact your physician immediately if your condition worsens or changes unexpectedly, if not improving as expected, or if other problems arise. Specifically return if pain, vomiting, bleeding, breathing difficulty or fever. Your Current Medications: CONTINUE TAKING THE FOLLOWING MEDICATIONS: Fish Oil Oral. Levothyroxine Sodium Oral. Multivitamin Oral. OTC Medications: Aspirin 325 mg (available over the counter): take 1 orally. Dispense thirty (30). No refills. Follow-up: Return to the emergency department as needed. Follow up with your doctor in three days. Reason for referral: recheck today's concerns. Summary of care provided to patient via paper. Follow up with doctor. Screening today revealed the patient's blood pressure to be in the normal range. The patient should follow up with a primary care provider for blood pressure management. Understanding of the discharge instructions verbalized by patient. Follow-up with: Desire Rodriguez MD, Cardiology, , [facility] - Cardiology, [facility] [address], [place] [address] Follow up even if well. Call for the next available appointment. Reason for referral: recheck today's concerns. call the office tomorrow at 4pm if they have not called you for an appointment. Summary of care provided to patient and family via paper. ADDITIONAL INFORMATION TIA: Transient Ischemic Attack The spell you had today is called a TIA (mini-stroke). It is caused by a temporary decrease or blockage of blood flow to a part of your brain. A TIA often happens when a blood clot travels to a blood vessel in the brain. The clot reduces or blocks blood flow, resulting in the symptoms you had. After a short while, the clot dissolves, blood flows again, and the symptoms disappear. Persons with atherosclerosis (hardening of the arteries) or atrial fibrillation (a type of irregular heartbeat) are at higher risk of TIA. TIA causes temporary symptoms similar to a stroke, but lasts less than 24 hours. A full stroke causes symptoms that last more than 24 hours and may be permanent. Once you have had a TIA, you are at risk of having a full stroke. Therefore, be sure to follow up with your doctor for further evaluation. This may include an ultrasound of the arteries in your neck and an evaluation of your heart. If problems are found, your doctor will recommend treatment with medications and/or procedures. Medications to reduce your chance of having another TIA (and stroke) include those that prevent blood clots, such as antiplatelet medicines and anticoagulant medicines. Home care The following guidelines will help you take care of yourself at home: If all of your symptoms have resolved, there is nothing special that you need to do today. Rest at home and avoid exertion for the rest of the day. If your doctor has prescribed antiplatelet medication, take it as directed. Other ways to reduce your risk of a stroke Hypertension, diabetes, elevated cholesterol, and smoking are risk factors for stroke and heart disease. These can be controlled through medications, diet and lifestyle changes. Taking daily aspirin (or similar medications) is a simple but important part of preventing stroke. Follow-up care Call your doctor for an appointment in the next few days for another evaluation. Additional tests may be needed. If you had an X-ray, CT scan, MRI scan, or ECG (electrocardiogram), it will be reviewed by a specialist. Youll be notified of any new findings that will affect your care. When to call 911 or emergency services Get immediate medical attention if any of the following occur: Any of your TIA symptoms return New problems with speech, vision, walking, or weakness or numbeness of the face or on one side of the body Severe headache, fainting spell, dizziness, or seizure Chest Pain, Uncertain Cause Chest pain can happen for a number of reasons. Sometimes the cause can not be determined. If yourcondition does not seem serious, and your pain does not appear to be coming from your heart, your doctor may recommend watching it closely. Sometimes the signs of a serious problem take more time to appear. Therefore, watch for the warning signs listed below. Home care After your visit, follow these recommendations: Rest today and avoid strenuous activity. Take any prescribed medicine as directed. Follow-up care Follow up with your doctor or this facility as instructed or if you do not start to feel better within 24 hours. Call 911 Get immediate medical attention if any of the following occur: A change in the type of pain: if it feels different, becomes more severe, lasts longer, or begins to spread into your shoulder, arm, neck, jaw or back Shortness of breath or increased pain with breathing Weakness, dizziness, or fainting Rapid heart beat Get prompt medical attention Call your doctor right away if any of the following occur: Cough with dark colored sputum (phlegm) or blood Fever of 100.4F(38C) or higher, or as directed by your health care provider Swelling, pain or redness in one leg Aspirin Oral tablet What is this medicine? ASPIRIN ( pir in) is a pain reliever. It is used to treat mild pain and fever. This medicine is also used as directed by a doctor to prevent and to treat heart attacks, to prevent strokes, and to treat arthritis or inflammation. How should I use this medicine? Take this medicine by mouth with a glass of water. Follow the directions on the package or prescription label. You can take this medicine with or without food. If it upsets your stomach, take it with food. Do not take your medicine more often than directed. Talk to your molding machine operator regarding the use of this medicine in children. While this drug may be prescribed for children as young as 12 years of age for selected conditions, precautions do apply. Children and teenagers should not use this medicine to treat chicken pox or flu symptoms unless directed by a doctor. Patients over 65 years old may have a stronger reaction and need a smaller dose. What side effects may I notice from receiving this medicine? Side effects that you should report to your doctor or health healthcare consulting manager as soon as possible: allergic reactions like skin rash, itching or hives, swelling of the face, lips, or tongue breathing problems changes in hearing, ringing in the ears confusion general ill feeling or flu-like symptoms pain on swallowing redness, blistering, peeling or loosening of the skin, including inside the mouth or nose signs and symptoms of bleeding such as bloody or black, tarry stools; red or dark-brown urine; spitting up blood or brown material that looks like coffee grounds; red spots on the skin; unusual bruising or bleeding from the eye, gums, or nose trouble passing urine or change in the amount of urine unusually weak or tired yellowing of the eyes or skin Side effects that usually do not require medical attention (report to your doctor or health healthcare consulting manager if they continue or are bothersome): diarrhea or constipation nausea, vomiting stomach gas, heartburn What may interact with this medicine? Do not take this medicine with any of the following medications: cidofovir ketorolac probenecid This medicine may also interact with the following medications: alcohol alendronate bismuth subsalicylate flavocoxid herbal supplements like feverfew, garlic, jeana, ginkgo biloba, horse chestnut medicines for diabetes or glaucoma like acetazolamide, methazolamide medicines for gout medicines that treat or prevent blood clots like enoxaparin, heparin, ticlopidine, warfarin other aspirin and aspirin-like medicines NSAIDs, medicines for pain and inflammation, like ibuprofen or naproxen pemetrexed sulfinpyrazone varicella live vaccine What if I miss a dose? If you are taking this medicine on a regular schedule and miss a dose, take it as soon as you can. If it is almost time for your next dose, take only that dose. Do not take double or extra doses. Where should I keep my medicine? Keep out of the reach of children. Store at room temperature between 15 and 30 degrees C (59 and 86 degrees F). Protect from heat and moisture. Do not use this medicine if it has a strong vinegar smell. Throw away any unused medicine after the expiration date. What should I tell my health care provider before I take this medicine? They need to know if you have any of these conditions: anemia asthma bleeding problems child with chickenpox, the flu, or other viral infection diabetes gout if you frequently drink alcohol containing drinks kidney disease liver disease low level of vitamin K lupus smoke tobacco stomach ulcers or other problems an unusual or allergic reaction to aspirin, tartrazine dye, other medicines, dyes, or preservatives or trying to get breast-feeding What should I watch for while using this medicine? If you are treating yourself for pain, tell your doctor or health healthcare consulting manager if the pain lasts more than 10 days, if it gets worse, or if there is a new or different kind of pain. Tell your doctor if you see redness or swelling. Also, check with your doctor if you have a fever that lasts for more than 3 days. Only take this medicine to prevent heart attacks or blood clotting if prescribed by your doctor or health healthcare consulting manager. Do not take aspirin or aspirin-like medicines with this medicine. Too much aspirin can be dangerous. Always read the labels carefully. This medicine can irritate your stomach or cause bleeding problems. Do not smoke cigarettes or drink alcohol while taking this medicine. Do not lie down for 30 minutes after taking this medicine to prevent irritation to your throat. If you are scheduled for any medical or dental procedure, tell your healthcare provider that you are taking this medicine. You may need to stop taking this medicine before the procedure. You have been given the following additional information: TIA: Transient Ischemic Attack Chest Pain, Uncertain Cause Aspirin Oral tablet (Electronically signed by Jairo Avendano Dr. 02/16/2017 9:42)
--- NOTE | 2017-02-16 09:43 | ED MED RECONCILIATION SUMMARY ---
Patient: LAISHA PARNELL Medication Reconciliation Report [facility] VisitID: [id number] [address] [place] [address] 56y, M Registration Date/Time: 02/15/2017 Weight: 85.8 kg Height/Length: 70 in. BMI: 27.1 ALLERGIES: Demerol The patient's Home Medications are listed below: CONTINUE TAKING THE FOLLOWING MEDICATIONS: Fish Oil Oral Levothyroxine Sodium Oral Multivitamin Oral The source(s) of the original Home Medication information: patient The following Medications were given to the patient in the Emergency Department: IV NS IV Fluids bolus 0, then 1000 mL/hr, administered: 02/15/2017 3:03:00 PM Fentanyl [IVP] IVP 50 mcg, administered: 02/15/2017 3:18:00 PM The following Medications were prescribed to the patient: Aspirin 325 mg (available over the counter): take 1 orally. Dispense thirty (30). No refills. -- Jairo Avendano Dr.
--- NOTE | 2017-02-16 09:43 | ED MED RECONCILIATION SUMMARY ---
Patient: LAISHA PARNELL Medication Reconciliation Report [facility] VisitID: [id number] [address] [place] [address] 56y, M Registration Date/Time: 02/15/2017 Weight: 85.8 kg Height/Length: 70 in. BMI: 27.1 ALLERGIES: Demerol The patient's Home Medications are listed below: CONTINUE TAKING THE FOLLOWING MEDICATIONS: Fish Oil Oral Levothyroxine Sodium Oral Multivitamin Oral The source(s) of the original Home Medication information: patient The following Medications were given to the patient in the Emergency Department: IV NS IV Fluids bolus 0, then 1000 mL/hr, administered: 02/15/2017 3:03:00 PM Fentanyl [IVP] IVP 50 mcg, administered: 02/15/2017 3:18:00 PM The following Medications were prescribed to the patient: Aspirin 325 mg (available over the counter): take 1 orally. Dispense thirty (30). No refills. -- Jairo Avendano Dr.
== END 2017-02-15 21:00 | disposition home or self-care (01) ==
LOC: ED SRH 14:59 → TRANS SRH 19:20 → ED SRH 19:20
DX: G45.9 Transient cerebral ischemic attack, unspecified (principal); G46.0 Middle cerebral artery syndrome; R07.89 Other chest pain; E03.9 Hypothyroidism, unspecified; Z79.899 Other long term (current) drug therapy; Z88.5 Allergy status to narcotic agent